=== PATIENT | female | born 1950 | race Caucasian/White ===

== ENCOUNTER → 2016-04-10 | Outpatient (CLI) | payer MEDICARE ==
[~2016-04-10] MED LIST: ALBU0.63 NEB; ASPI-482 PO; BIOT1CAP3 PO; CARB1TAB5 PO; CETI10CA PO; CLON0.5T3 PO; GABA-587 PO; IOHEXOL 180 MG/ML 10 ML VIAL. INT ART ONE; LEVO50TA PO; LIDOCAINE 1% Multi-Dose 20 ML VIAL. ID ONE; METF850T2 PO; METO-269 PO; OMEG1CAP28 PO; OMEP20TA63 PO; SIMV20TA3 PO; TRAZ50TA15 PO; TRIA10.8 NS
--- NOTE | 2016-04-10 14:49 | KCIC ---
PROCEDURE CT arthrogram of the left knee TECHNIQUE Intra-articular contrast injected prior to the scan. Standard imaging then performed. Exposure: One or more of the following individualized dose reduction techniques were utilized for this exam: 1. Automated exposure control. 2. Adjustment of the mA and/or kV according to patient size. 3. Use of iterative reconstruction technique. HISTORY Severe left knee pain. Patient fell March 28, 2016. COMPARISON None FINDINGS There is blunting and small size of the medial meniscus as well as some linear accumulation of contrast within the posterior horn and body via the superior surface. Findings are compatible with a medial meniscal tear. Partial extrusion of medial meniscus from the joint compartment. No definite lateral meniscal tear. There is no gross discontinuity identified of the anterior and posterior cruciate ligaments. Moderate smooth cartilage thinning at the medial joint compartment, greatest at the central weight-bearing aspect, with marginal osteophytes. Mild lateral compartment chondromalacia with marginal osteophytes. There is no evidence of an osteochondral loose body. No acute fracture or bone destruction. IMPRESSION 1. Medial meniscal tear. 2. Primary osteoarthritis, greatest at the medial joint compartment. Electronically signed by: Jw Crandall MD (Apr 10, 2016 14:48:30)
--- NOTE | 2016-04-10 15:30 | KCIC ---
Left knee contrast injection using fluoroscopic guidance prior to CT HISTORY Severe left knee pain after injury in March 28, 2016. Technique: The procedure and associated risks, including infection, bleeding or allergic reaction, were explained to the patient. Informed written consent was obtained. Time-out procedure was performed. Medial aspect of the anterior knee was prepped and draped in usual sterile manner. Local anesthetic was obtained with lidocaine. A 25 gauge needle was advanced without difficulty into the patellofemoral joint via the medial approach. After negative aspiration, a total of 15 cc Omnipaque 180 contrast and 5 cc 1 percent lidocaine were injected without difficulty. Needle was removed. Patient tolerated the procedure well without immediate complication and left in stable condition. Patient was given instructions to contact us or go to the emergency room if there are any unexpected complications, which were explained. A single spot image was obtained. Fluoroscopy time: 42 seconds Electronically signed by: Jw Crandall MD (Apr 10, 2016 15:28:32)
== END | disposition home or self-care (01) ==
LOC: KCIC 12:46
PROVIDERS: ATTEND Family Medicine
DX: M25.562 Pain in left knee (principal); S89.92XA Unspecified injury of left lower leg, initial encounter; Z87.891 Personal history of nicotine dependence; E11.9 Type 2 diabetes mellitus without complications
CPT/HCPCS: 27370; 73701